=== PATIENT | female | born 1990 | race Caucasian/White ===

== ENCOUNTER 2017-05-29 02:33 | Outpatient (CLI) | payer OTHER ==
[2017-05-29] VITALS (16 sets, daily range): BP systolic 116–147; BP diastolic 60–85
[~2017-05-29] VITALS: Ht 167.6 cm; Wt 140.0 kg
[~2017-05-29 02:33] MED LIST: MACROBID100 MG PO
[2017-05-29 04:51] LABS: ADD MIUA? YES; BILIRUBIN NEGATIVE; BLOOD NEGATIVE; COLOR YELLOW ((YELLOW)); GLUCOSE (STRIP) NEGATIVE; KETONES 5; LEUKOCYTES NEGATIVE; NITRITE NEGATIVE; PROTEIN (STRIP) NEGATIVE; SPECIFIC GRAVITY 1.009 (1.000-1.030); UROBILINOGEN 0.2 MG/DL (0.2-1.0)
[2017-05-29 05:05] LABS: BACTERIA 2+ /HPF; EPITHELIAL CELLS 1+ /HPF; MUCUS TRACE /LPF; RED BLOOD CELLS 0-5 /HPF (0-5); UCUL ADDED? YES; WHITE BLOOD CELLS 0-5 /HPF (0-5)
[2017-05-29 05:23] LABS: UR CREATININE CONCENTRATION 59.9 MG/DL
[2017-05-29 05:37] LABS: EOSINOPHIL (%) 0.4 % (0-5); EOSINOPHIL COUNT 0.1 K/uL (0-0.3); HEMATOCRIT 31.8 % (36.0-46.0); IMMATURE GRANULOCYTE COUNT 0.1 K/uL; INSTRUMENT ABS NEUTROPHIL CT 9.1 K/uL; LYMPHOCYTE COUNT 1.5 K/uL (1.0-2.8); MCH 28.1 PG (29.0-34.0); MEAN PLAT.VOLUME 12.1 uM^3 (9.5-12.4); MONOCYTE COUNT 0.7 K/uL (0-0.8); NEUTROPHIL (%) 79.6 % (45-76); NEUTROPHIL COUNT 9.1 K/uL (1.8-6.4); PLATELET COUNT 169 K/uL (156-360); RBC DIS.WIDTH-CV 13.6 % (11.8-14.6); RBC DIS.WIDTH-SD 41.8 % (39-53); RED BLOOD COUNT 3.74 M/uL (3.80-5.20); WHITE BLOOD COUNT 11.4 K/uL (4.1-10.2)
[2017-05-29 06:01] LABS: ANION GAP 12 MEQ/L (2-14); CHLORIDE 104 MEQ/L (99-109); POTASSIUM 3.8 MEQ/L (3.7-5.4); SAMPLE HEMOLYSIS CHECK 0; SAMPLE ICTERIC CHECK 0; SAMPLE LIPEMIA CHECK 0; SODIUM 137 MEQ/L (136-147); TOTAL BILIRUBIN 0.6 MG/DL (0.0-1.0)
[2017-05-29 06:06] LABS: ALKALINE PHOSPHATASE 164 IU/L (3-129); GFR ESTIMATE (CALCULATED) > 59 mL/min/; GLUCOSE 88 mg/dL (70-99); UREA NITROGEN (BUN) 7 mg/dL (9-23)
[2017-05-29] MEDS ORDERED: MACROBID100 MG PO (16:06)
== END 2017-05-29 16:27 | disposition home or self-care (01) ==
LOC: LDRP-OP 02:33 → 2WEST 02:34 → LDRP-OP 07-22 12:36
PROVIDERS: Advanced Practice Midwife
DX: O47.03 False labor before 37 completed weeks of gestation, third trimester (principal); O26.893 Other specified pregnancy related conditions, third trimester; R05 Cough; R11.0 Nausea; Z3A.36 36 weeks gestation of pregnancy; O34.219 Maternal care for unspecified type scar from previous cesarean delivery
CPT/HCPCS: 59025; 80053; 81003; 82570; 84156; 85025; 86850; 86900; 86901; 87086; G0378; J0595; J0696; J0702; J2270; J2405; J3105; J7050; J7120; Q0169

== ENCOUNTER 2017-05-30 11:07 | Outpatient (CLI) | payer OTHER ==
[2017-05-30 11:27] VITALS: BP 125/73
== END 2017-05-30 12:15 | disposition home or self-care (01) ==
LOC: LDRP-OP 11:07 → 2WEST 11:08 → LDRP-OP 07-22 21:14
DX: O47.03 False labor before 37 completed weeks of gestation, third trimester (principal); Z3A.36 36 weeks gestation of pregnancy
CPT/HCPCS: 59025; G0378

== ENCOUNTER 2017-06-01 00:58 | Outpatient (CLI) | payer OTHER ==
[~2017-06-01] VITALS: Ht 167.6 cm; Wt 106.0 kg
[2017-06-01 01:41] VITALS: BP 128/79
== END 2017-06-01 04:47 | disposition home or self-care (01) ==
LOC: LDRP-OP 00:58 → 2WEST 00:59 → LDRP-OP 07-22 12:33
DX: O47.03 False labor before 37 completed weeks of gestation, third trimester (principal); O99.613 Diseases of the digestive system complicating pregnancy, third trimester; K21.9 Gastro-esophageal reflux disease without esophagitis; O26.893 Other specified pregnancy related conditions, third trimester; G43.909 Migraine, unspecified, not intractable, without status migrainosus; M54.5 Low back pain; O23.43 Unspecified infection of urinary tract in pregnancy, third trimester; Z3A.36 36 weeks gestation of pregnancy
CPT/HCPCS: 59025; G0378; J7120

== ENCOUNTER 2017-06-09 11:44 | Inpatient (IN) | payer OTHER ==
[~2017-06-09] VITALS: Ht 167.6 cm; Wt 136.0 kg
[2017-06-09 12:04] VITALS: BP 130/75
[2017-06-09 14:01] LABS: EOSINOPHIL (%) 0.4 % (0-5); IMMATURE GRANULOCYTE (%) 0.6 % (0.0-0.7); IMMATURE GRANULOCYTE COUNT 0.1 K/uL; INSTRUMENT ABS NEUTROPHIL CT 7.4 K/uL; LYMPHOCYTE COUNT 1.4 K/uL (1.0-2.8); MCH 28.3 PG (29.0-34.0); MCHC 32.8 G/DL (30.0-36.0); MCV 86.3 FL (83-99); MEAN PLAT.VOLUME 11.9 uM^3 (9.5-12.4); MONOCYTE (%) 6.8 % (3-12); MONOCYTE COUNT 0.7 K/uL (0-0.8); NEUTROPHIL (%) 77.6 % (45-76); NEUTROPHIL COUNT 7.4 K/uL (1.8-6.4); PLATELET COUNT 169 K/uL (156-360); RBC DIS.WIDTH-CV 13.9 % (11.8-14.6); RED BLOOD COUNT 3.71 M/uL (3.80-5.20); WHITE BLOOD COUNT 9.5 K/uL (4.1-10.2)
[2017-06-09 14:34] VITALS: BP 128/74
[2017-06-09 17:58] VITALS: BP 126/64
[2017-06-09 19:18] VITALS: BP 129/59
[2017-06-09 20:07] VITALS: BP 143/64
[2017-06-09 22:04] VITALS: BP 133/61
[2017-06-10] VITALS (8 sets, daily range): BP systolic 101–142; BP diastolic 51–71
[2017-06-10 07:31] LABS: EOSINOPHIL (%) 0.1 % (0-5); HEMATOCRIT 27.4 % (36.0-46.0); IMMATURE GRANULOCYTE (%) 0.5 % (0.0-0.7); IMMATURE GRANULOCYTE COUNT 0.1 K/uL; INSTRUMENT ABS NEUTROPHIL CT 9.5 K/uL; LYMPHOCYTE COUNT 1.4 K/uL (1.0-2.8); MCHC 32.5 G/DL (30.0-36.0); MCV 86.2 FL (83-99); MEAN PLAT.VOLUME 12.5 uM^3 (9.5-12.4); MONOCYTE (%) 6.9 % (3-12); MONOCYTE COUNT 0.8 K/uL (0-0.8); NEUTROPHIL (%) 80.6 % (45-76); NEUTROPHIL COUNT 9.5 K/uL (1.8-6.4); PLATELET COUNT 170 K/uL (156-360); RBC DIS.WIDTH-CV 13.6 % (11.8-14.6); RBC DIS.WIDTH-SD 42.4 % (39-53); RED BLOOD COUNT 3.18 M/uL (3.80-5.20); WHITE BLOOD COUNT 11.8 K/uL (4.1-10.2)
[2017-06-11 02:57] VITALS: BP 103/56
[2017-06-11 07:25] VITALS: BP 105/64
[2017-06-11 11:20] VITALS: BP 115/76
[2017-06-11] MEDS ORDERED: IBUPROFEN800 MG PO (12:06)
[2017-06-11] MEDS ORDERED: CHROMAGEN,1 CAPSULE PO (12:06)
[2017-06-11] MEDS ORDERED: ENDOCET 5-3251 EACH PO (12:06)
== END 2017-06-11 13:00 | disposition home or self-care (01) | DRG 765 ==
LOC: LDRP-OP 11:44 → 2WEST 11:45 → LDRP-OP 07-22 04:57
PROVIDERS: Obstetrics & Gynecology Obstetrics
DX: O34.211 Maternal care for low transverse scar from previous cesarean delivery (principal); O75.3 Other infection during labor; Z68.42 Body mass index [BMI] 45.0-49.9, adult; D62 Acute posthemorrhagic anemia; E66.01 Morbid (severe) obesity due to excess calories; O99.214 Obesity complicating childbirth; Z37.0 Single live birth; Z3A.38 38 weeks gestation of pregnancy; O99.02 Anemia complicating childbirth; D50.9 Iron deficiency anemia, unspecified; O99.013 Anemia complicating pregnancy, third trimester; O99.89 Other specified diseases and conditions complicating pregnancy, childbirth and the puerperium; O12.04 Gestational edema, complicating childbirth; O26.893 Other specified pregnancy related conditions, third trimester
CPT/HCPCS: 85025; 86850; 86900; 86901; J0690; J1100; J1200; J1885; J2274; J2405; J7050; J7120; S0028